=== PATIENT | female | born 1990 | race Caucasian/White ===

== ENCOUNTER 2018-04-26 18:00 | Emergency (ER) | payer BC ==
[~2018-04-26] VITALS: Ht 157.5 cm; Wt 78.6 kg
[2018-04-26 18:19] VITALS: TEMP 98.7
[2018-04-26 20:31] LABS: COLLECTION METHOD CLEAN CATCH
[2018-04-26 20:38] LABS: MUCOUS Present /lpf; PH 6 (5-8); SQUAMOUS EPITHELIAL 0-2 /hpf; URINE APPEARANCE Clear; URINE BACTERIA None Seen /hpf; URINE BILIRUBIN Negative (NEGATIVE); URINE BLOOD 1+ (NEGATIVE); URINE COLOR Yellow; URINE GLUCOSE Negative (NEGATIVE); URINE KETONE Negative (NEGATIVE); URINE LEUKOCYTE ESTERASE Negative (NEGATIVE); URINE NITRATE Negative (NEGATIVE); URINE PROTEIN(semi-quant) Negative (NEGATIVE); URINE RBC 0-2 /hpf; URINE UROBILINOGEN Negative (NEGATIVE)
[2018-04-26 20:50] LABS: BASO % 0.2 % (0.0-2.0); EOS # 0.1 (0.0-0.7); GRAN # 4.8 (1.4-6.5); GRAN % 79.6 % (42.2-75.2); HEMATOCRIT 40.8 % (37.0-47.0); HEMOGLOBIN 13.4 g/dl (12.5-16.0); LYMPH # 0.8 (1.2-3.4); LYMPH % 13.9 % (20.0-51.0); MEAN CELL VOLUME 81 fl (80.0-100.0); MEAN CORPUSCULAR HEMOGLOBIN 27 pg (27.0-31.0); MEAN CORPUSCULAR HGB CONC 33 g/dl (33.0-37.0); MEAN PLATELET VOLUME 9.8 fl (7.4-10.4); MONO # 0.3 (0.1-0.6); MONO % 4.5 % (1.7-9.3); PLATELET COUNT 251 K/mm3 (130-400); RED BLOOD COUNT 5.05 M/mm3 (4.10-5.30); REDCELL DISTRIBUTION WIDTH-CV 13.3 % (11.5-14.5)
[2018-04-26 21:00] LABS: ALBUMIN 4.2 gm/dL (3.5-5.0); CALCIUM 8.9 mg/dL (8.4-10.2); CREATININE, serum 0.65 mg/dL (0.52-1.25); POTASSIUM 3.4 mmol/L (3.4-5.0); TOTAL PROTEIN 7.5 gm/dL (6.4-8.2)
[2018-04-26] MEDS ORDERED: REGLAN 10MG10 MG/TAB PO (21:29)
[2018-04-26 21:39] VITALS: BP 114/81; PULSE 81
== END 2018-04-26 23:07 | disposition home or self-care (01) ==
LOC: COL.ER 18:00
PROVIDERS: Physician Assistant
DX: O21.9 Vomiting of pregnancy, unspecified (principal); Z3A.00 Weeks of gestation of pregnancy not specified

== ENCOUNTER 2018-06-14 16:36 | Emergency (ER) | payer OTHER ==
[~2018-06-14] VITALS: Ht 157.5 cm; Wt 77.7 kg
[~2018-06-14 16:36] MED LIST: REGLAN 10MG10 MG/TAB PO
[2018-06-14 16:41] VITALS: TEMP 98.1
[2018-06-14] MEDS ORDERED: PRENATAL (17:25)
[2018-06-14] MEDS ORDERED: ZITHROMAX Z PA250 MG PO (17:39)
[2018-06-14 18:01] VITALS: BP 117/69; PULSE 114
== END 2018-06-14 18:11 | disposition home or self-care (01) ==
LOC: COL.ER 16:36
DX: O99.511 Diseases of the respiratory system complicating pregnancy, first trimester (principal); J45.909 Unspecified asthma, uncomplicated; Z3A.13 13 weeks gestation of pregnancy

== ENCOUNTER 2020-03-29 19:20 | Emergency (ER) | payer OTHER ==
[~2020-03-29] VITALS: Ht 157.5 cm; Wt 86.4 kg
[~2020-03-29 19:20] MED LIST changes: +PRENATAL; +ZITHROMAX Z PA250 MG PO
[2020-03-29 19:34] VITALS: TEMP 97.5
[2020-03-29 21:25] VITALS: BP 126/75; PULSE 92
== END 2020-03-29 21:25 | disposition home or self-care (01) ==
LOC: COL.ER 19:20
DX: O99.511 Diseases of the respiratory system complicating pregnancy, first trimester (principal); J45.909 Unspecified asthma, uncomplicated; O21.9 Vomiting of pregnancy, unspecified; Z3A.11 11 weeks gestation of pregnancy; Z20.828 Contact with and (suspected) exposure to other viral communicable diseases; Z88.8 Allergy status to other drugs, medicaments and biological substances

== ENCOUNTER 2024-01-13 07:24 | Inpatient (IN) | payer OTHER ==
[2024-01-13] VITALS (10 sets, daily range): BP systolic 116–132; BP diastolic 59–82; PULSE 71–90; TEMP 98.1–98.8
[~2024-01-13] VITALS: Ht 157.5 cm; Wt 95.9 kg
--- NOTE | 2024-01-13 07:15 | NUR ---
PT WHEELED VIA BED ONTO THE UNIT WITH EMS DUE TO HOME OF .PT STATES DELIVERED AT 0636. APPEARED CYANOTIC AND LETHARGIC, MOVED INTO NURSERY FOR ASSESSMENT AT THIS TIME JOURDAN MEREDITH RN ASSUMES CARE. 0722 OF INTACT PLACENTA DELIVERED BY SUSIE PACHECO RN. 0757 DR ROLES AT BEDSIDE.ROOM PREPARED FOR REPAIR. LIDOCAINE ADMINISTERED INTRADERMALLY PER DR ROLES.BILATERAL LABIAL LACERATIONS REPAIRED PER DR ROLES. LOCHIA SCANT.FUNDUS FIRM AT THE UMBILICUS WITH MASSAGE.ICE PACK PLACED ON THE PERINEUM.
[~2024-01-13 07:24] MED LIST changes: +NORCO 325 MG-51 TAB PO
[2024-01-13] MEDS ORDERED: Magnes Hydrox (MOM) 80 MG/ML 30 ML CUP PO PRN (08:45)
[2024-01-13] MEDS ORDERED: Phenylephrine/Mineral Oil/Petrolatum 57 GM TUBE RC PRN (08:45)
[2024-01-13] MEDS ORDERED: Ibuprofen 800 MG TAB PO SCH (08:45)
[2024-01-13] MEDS ORDERED: Naloxone 0.4 MG/ML VIAL IV PRN (08:45)
[2024-01-13] MEDS ORDERED: Witch Hazel 50% Pads Bulk TUB TP PRN (08:45)
[2024-01-13] MEDS ORDERED: Acetaminophen 500 MG TAB PO SCH (08:45)
[2024-01-13] MEDS ORDERED: Loratadine 10 MG TAB PO PRN (08:45)
[2024-01-13] MEDS ORDERED: oxyCODONE 5 MG TAB PO PRN (08:45)
[2024-01-13] MEDS ORDERED: Mag/Al Hydrox/Simeth Susp 30 ML CUP PO PRN (08:45)
[2024-01-13] MEDS ORDERED: Measles/Mumps/Rubella Virus Vaccine Live w Diluent 0.5 ML VIAL SQ SCH (08:45)
[2024-01-13 10:26] LABS: BASO % 0.2 % (0.0-2.0); EOS % 0.1 % (0.0-4.0); GRAN # 10.3 K/mm3 (1.4-6.5); GRAN % 85.6 % (42.2-75.2); LYMPH # 1.3 K/mm3 (1.2-3.4); LYMPH % 10.9 % (20.0-51.0); MEAN CELL VOLUME 76 fl (80.0-100.0); MEAN CORPUSCULAR HEMOGLOBIN 26 pg (27-31); MEAN CORPUSCULAR HGB CONC 34 g/dl (33.0-37.0); MEAN PLATELET VOLUME 11.6 fl (7.4-10.4); MONO # 0.4 K/mm3 (0.1-0.6); MONO % 2.9 % (1.7-9.3); PLATELET COUNT 218 K/mm3 (130-400)
[2024-01-13 10:27] LABS: HEMATOCRIT 35.7 % (37.0-47.0)
--- NOTE | 2024-01-13 11:40 | NUR ---
PT AMBULATES INTO THE BATHROOM FOR PERICARE.PT DENIES DIZZINESS AND LIGHTHEADEDNESS.PERICARE PROVIDED AND MESH PANTIES AND PAD APPLIED.PT ABLE TO VOID AT THIS TIME.PT AMBULATES INTO ROOM 207.PT AND SPOUSE ACCLIMATED INTO ROOM.EDUACTION PROVIDED.QUESTIONS ASKED AND ANSWERED.PT AND SPOUSE VERBALIZE UNDERSTANDING.
[2024-01-13 12:06] LABS: TRICYCLIC ANTIDEPRESS URINE NEGATIVE (NEGATIVE)
[2024-01-13] MEDS ORDERED: Sennosides/Docusate 8.6-50 MG TAB PO SCH (17:00)
[2024-01-13] MEDS ORDERED: traZODone 50 MG TAB PO PRN (21:00)
[2024-01-14 01:27] VITALS: BP 109/67; PULSE 87; TEMP 98.1
[2024-01-14 08:30] VITALS: BP 123/64; PULSE 89; TEMP 97.8
[2024-01-14] MEDS ORDERED: IBU800 M1 PO (09:41)
--- NOTE | 2024-01-14 09:44 | NUR ---
Initial visit; Patient thanked Engine Service Repairer for looking in on her and offering congratulations and God's blessings for the of her daughter. Engine Service Repairer complimented patient for the name she chose and thanked her for choosing [facility].
--- NOTE | 2024-01-14 12:00 | NUR ---
ALL DC INSTRUCTIONS REVIEWED AND UNDERSTOOD BY PT. MMR ADMINISTERED PER REQUEST. PT STATES SHE HAS A FOLLOW UP APPOINTMENT PENDING AT [facility] WITH HER OB FOR ROUTINE FOLLOW UP CARE. ALSO HAS AN APPOINTMENT SCHEDULED FOR TOMORROW AT [facility] WITH THE LEAD BURNER HELPER "" FOR HER INFANT. INFANT PLACED SECURELY IN CARSEAT, STRAPS ASSESSED BY THIS RN. AMBULATORY FROM UNIT IN STABLE CONDITION.
== END 2024-01-14 12:00 | disposition home or self-care (01) | DRG 776 ==
LOC: LDR 07:24 → OB 10:30
PROVIDERS: ADMIT Obstetrics & Gynecology
PROC: 10E0XZZ Delivery of Products of Conception, External Approach (ICD-10-PCS; principal; 2024-01-13)
PROC: 0UQMXZZ Repair Vulva, External Approach (ICD-10-PCS; 2024-01-13)
DX: Z39.0 Encounter for care and examination of mother immediately after delivery (principal); O70.0 First degree perineal laceration during delivery; Z23 Encounter for immunization